=== PATIENT | female | born 1980 | race Caucasian/White ===

== ENCOUNTER 2017-11-20 23:47 | Emergency (ER) | payer OTHER ==
[2017-11-20 23:50] VITALS: BP 148/59; PULSE 88; TEMP 98.7; BMI 26.2
--- NOTE | 2017-11-21 01:19 | PDOC ---
Attending Attestation - Resident Resident Name: Efra Reid - ED Attending Attestation I have performed the following: I have examined & evaluated the patient, The case was reviewed & discussed with the resident, I agree w/resident's findings & plan, Exceptions are as noted - HPI HPI: 11/21/17 01:17 37 yo F presenting to the ER with a complaint of numbness along the right cheek , near mandible She also reports pain on the left side of the neck and left shoulder This began 3 months ago, seen by PMD which She felt that the left side of her face was swollen which No headache, visual changes, No SOB, no palpitations - Physicial Exam PE: 11/21/17 01:19 GENERAL: The patient is in no acute distress. HEAD: Normal with no signs of trauma. EYES: PERRLA, EOMI, sclera anicteric, conjunctiva clear. ENT: Ears normal, nares patent, oropharynx clear without exudates. Moist mucous membranes. NECK: Normal range of motion, supple without lymphadenopathy, JVD, or masses. LUNGS: Breath sounds equal, clear to auscultation bilaterally. No wheezes, and no crackles. HEART:Regular rate and rhythm, normal S1 and S2 without murmur, rub or gallop. ABDOMEN: Soft, nontender, normoactive bowel sounds. No guarding, no rebound. No masses palpable. EXTREMITIES: Normal range of motion, no edema. No clubbing or cyanosis. No erythema, or tenderness. NEUROLOGICAL: Cranial nerves II through XII grossly intact. Normal speech. No focal neurological deficits. MUSCULOSKELETAL: Back non-tender to palpation, no CVA tenderness SKIN: Warm, Dry, normal turgor, no rashes or lesions noted.
--- NOTE | 2017-11-21 02:19 | PDOC ---
History of Present Illness - General Chief Complaint: Edema Stated Complaint: PAIN Time Seen by Provider: 11/21/17 00:49 History Source: Patient Exam Limitations: Language Barrier (Pt is Indonesian speaking only. Telephone manager hospital utilized.) - History of Present Illness Initial Comments: 37 y/o female presenting to [facility] ER via private auto complaining of left sided facial numbness, subjective left facial swelling, vein pain on left side of chest, and numbness in left fingers. Symptoms have been chronic for past three months, but acutely worsened in the past two days. Discomfort is worsened by laying flat. Trialed 2x ASA with minimal relief. Was evaluated by PCP, who obtained L shoulder plain films, reportedly normal. Pt denies difficulty swallowing, sore throat, dental pain, discharge from ear, change in vision, or weakness with left upper arm. PCP: DILIP Olguin Medical Hx: - Asthma, minor, uses PRN inhaler, not used recently Surgical Hx: - - BTL (2006) Past History - Past Medical History Allergies/Adverse Reactions: Allergies Allergy/AdvReac Type Severity Reaction Status Date / Time No Known Allergies Allergy Verified 11/21/17 01:45 Home Medications: Ambulatory Orders NK [No Known Home Medication] 11/21/17 COPD: No - Suicide/Smoking/Psychosocial Hx Smoking History: Never smoked Review of Systems - Review of Systems Able to Perform ROS?: Yes Is the patient limited [place] proficient: Yes Constitutional: No: Chills, Diaphoresis, Fever HEENTM: Yes: See HPI. No: Blurred Vision, Recent change in vision, Double Vision, Ear Pain, Ocular Prothesis, Ear Discharge, Nose Pain, Nose Congestion, Nose Bleeding, Hearing Loss, Throat Pain, Throat Swelling, Mouth Pain, Dental Problems, Difficulty Swallowing, Mouth Swelling Respiratory: No: Shortness of Breath Cardiac (ROS): No: Chest Pain, Irregular Heart Rate, Lightheadedness, Palpitations, Syncope ABD/GI: No: Abdominal Distended, Constipated, Diarrhea, Nausea, Vomiting : No: Burning, Dysuria, Frequency, Hematuria Musculoskeletal: No: Back Pain Integumentary: No: Bruising, Rash Neurological: Yes: See HPI, Paresthesia. No: Headache, Weakness, Unsteady Gait , Dizziness Hematologic/Lymphatic: No: Easy Bleeding, Easy Bruising *Physical Exam - Vital Signs Last Vital Signs Temp Pulse Resp BP Pulse Ox 98.7 F 88 18 148/59 99 11/20/17 23:48 11/20/17 23:48 11/20/17 23:48 11/20/17 23:48 11/20/17 23:48 - Physical Exam Comments: Constitutional: Well-developed, well-nourished female in no acute distress or obvious discomfort. Found sitting upright on edge of hospital bed. Alert and oriented x4. Answered all questions appropriately and completely. Speech was non -labored, non-pressured. Indonesian speaking only. Head: Normocephalic. No obvious external signs of trauma. Eyes: PERRL. EOMI. Sclerae white. Conjunctiva moist and not injected. EARS: External auditory canals and tympanic membranes pearly meza. Hearing grossly intact. No mastoid tenderness. NOSE: No nasal discharge. THROAT: Oral cavity and pharynx normal. No inflammation, swelling, exudate, or lesions. Teeth and gingiva in good general condition. ENT: EAMs normal. Hearing normal. Nasal mucosa normal. Lips, gums and oropharynx: pink, moist, not injected, no lesions, no ulcerations Neck: Supple, trachea is midline. Cardiovascular: Regular rate and regular rhythm. No murmur, rubs, clicks, or gallops. Peripheral pulses: Radial pulses full. Respiratory: Breathing unlabored. Equal chest rise and fall. Clear to auscultation bilaterally. No stridor, no wheezing, no rhonchi. Gastrointestinal: abdomen is soft, non-tender, non-distended. Neuro: Alert and oriented. Moving all four extremities spontaneously. MSK / Skin: Warm, dry, and intact. No bruising, rashes, or other lesions. No palpable nodules. Good active and passive ROM with upper left extremity. Rotator cuff tests negative. Psych: Affect: appropriate. Mood: normal. ED Treatment Course - LABORATORY CBC & Chemistry Diagram: 11/21/17 01:30 11/21/17 01:30 - RADIOLOGY Radiology Studies Ordered: Category Date Time Status NECK CTA [CT] Stat CT Scan 11/21/17 01:46 Ordered DUPLEX VASCUL US-1 ARM [US] Stat Ultrasound 11/21/17 01:45 Taken Radiograph Interpretation: Left Upper Extremity Duplex U/S: Valentino Pederson MD wrote on Nov 21, 2017 at 02:12 AM: Referring Physician: BISHOP PEARL Patient Name: KIRA BELL THIS IS A PRELIMINARY REPORT FROM [facility] DATE OF SERVICE: 2017-11-21 01:47:38 IMAGES: 23 EXAM: Venous duplex unilateral left upper extremity HISTORY: Rule out DVT COMPARISON: None. FINDINGS: There is no DVT in the left upper extremity. IMPRESSION: No DVT. James Pederson MD 11/21/2017 02:10 EST CTA of Neck: Valentino Pederson MD wrote on Nov 21, 2017 at 04:00 AM: Referring Physician: JUARES DAE Patient Name: KIRA BELL THIS IS A PRELIMINARY REPORT FROM [facility] DATE OF SERVICE: 2017-11-21 03:31:30 IMAGES: 234 EXAM: NECK CTA HISTORY: Left neck pain COMPARISON: None. FINDINGS: The visualized intracranial contents and intracranial vasculature are normal. The right and left common, internal and external carotid arteries are normal without plaque, stenosis or dissection. The bilateral vertebral arteries are patent with a slightly dominant right vertebral artery. The visualized origins of the great vessels are normal. No mass, edema or abscess. No suspicious adenopathy. Salivary glands and thyroid glands and lung apices are clear. Bones are normal. IMPRESSION: Normal CT angiogram of the neck. Individualized dose optimization techniques were used for this CT. THIS DOCUMENT HAS BEEN ELECTRONICALLY SIGNED James Pedersno MD Medical Decision Making - Medical Decision Making *Reviewed vital signs, nursing notes, and prior visit documentation (if available). 37 y/o female complaining of vague left face, left neck, left upper chest, and left arm pain. Symptoms are acute on chronic for past three months. Afebrile. Vitals Considered intraoral abscess, otitis media, otitis externa, mastoiditis, tonsillitis, or submandibular abscess but all seem less likely given benign physical exam. Suspect MSK pain. Will evaluate further for superior vena cava syndrome vs upper extremity DVT, though low suspicion for both. Left Upper Ext U/S: No evidence of DVT. CTA of neck: Normal angiogram. No evidence of superior vena cava syndrome. Pt found sleeping comfortably on re-exam. Discussed imaging and laboratory results with pt. Answered all questions. Provided return precautions. Pt expressed verbal understanding and agreement with plan to discharge home with outpatient follow up. Provided copies of imaging results. *DC/Admit/Observation/Transfer Diagnosis at time of Disposition: Neck pain on left side, Left-sided chest wall pain Shoulder pain, left Qualifiers: Chronicity: chronic Qualified Code(s): M25.512 - Pain in left shoulder - Discharge Dispostion Disposition: HOME Condition at time of disposition: Good Decision to Admit order: No - Referrals Referrals: Opal Olguin MD [Nurse Practitioner] - - Patient Instructions Printed Discharge Instructions: DI for Muscle Strain Additional Instructions: El ultrasonido y la tomografa computarizada fueron normales hoy en da. Tus venas y arterias son normales. Adjunto tor copia de los resultados a pao paquete. Puede hacerse cargo del contador Tylenol o Advil segn sea necesario para el dolor. Josh lazara se indica en el prospecto del paquete. No exceda la dosis recomendada. Polo un seguimiento con mo mdico de atencin primaria dentro de los prximos 3- 4 harris. Tendr que llamar para hacer tor cami. El nmero est incluido en pao paquete. Dirjase al servicio de urgencias ms cercano si mo afeccin empeora o si whitney que necesita tor evaluacin de emergencia adicional. Print Language: NEPALI - Post Discharge Activity
[2017-11-21 02:46] LABS: BASO % 0.4 % (0-2.0); EOS % 2.1 % (0-4.5); HEMATOCRIT 24.4 % (32.4-45.2); HEMOGLOBIN 7.2 GM/dL (10.7-15.3); LYMPH % 37.8 % (8-40); MCHC 29.6 g/dl (32.0-36.0); MEAN CELL VOLUME 56.8 fl (80-96); MEAN PLT VOLUME 9.2 fl (7.5-11.1); MONO % 8.5 % (3.8-10.2); NEUT % 51.2 % (42.8-82.8); PLATELET COUNT 309 K/MM3 (134-434); RDW 21.3 % (11.6-15.6); WHITE BLOOD COUNT 7.4 K/mm3 (4.0-10.0)
[2017-11-21 02:54] LABS: MCH 16.8 pg (25.7-33.7)
[2017-11-21 03:08] LABS: ALBUMIN 4.1 g/dl (3.4-5.0); ANION GAP 6 MMOL/L (8-16); BILIRUBIN,TOTAL 0.4 mg/dL (0.2-1.0); BLOOD UREA NITROGEN 8 mg/dL (7-18); CALCIUM 8.6 mg/dL (8.5-10.1); CHLORIDE 107 mmol/L (98-107); CO2 26 mmol/L (21-32); CREATININE 0.5 mg/dL (0.55-1.02); GLUCOSE,RANDOM 89 mg/dL (74-106); POTASSIUM 4.2 mmol/L (3.5-5.1); SGOT/AST 20 U/L (15-37); SGPT/ALT 29 U/L (13-61); SODIUM 139 mmol/L (136-145); TOT PROT 8.2 g/dl (6.4-8.2)
[2017-11-21 03:09] LABS: ALK PHOS 87 U/L (45-117)
[2017-11-21 04:38] LABS: ANISOCYTOSIS 2+
[2017-11-21 04:39] LABS: PLATELET ESTIMATE ADEQUATE
== END 2017-11-21 05:01 | disposition home or self-care (01) ==
LOC: JER 23:47
DX: M54.2 Cervicalgia (principal); R07.89 Other chest pain
CPT/HCPCS: 36415; 70498-TC; 80053; 84703; 85025; 93971; 99282-25

== ENCOUNTER 2018-08-06 23:00 | Emergency (ER) | payer OTHER | END 2018-08-07 03:05 | disposition home or self-care (01) | LOC: JER 23:00 ==